=== PATIENT | male | born 1980 | race Caucasian/White ===

== ENCOUNTER 2019-04-30 11:12 | Emergency (ER) | payer SELFPAY ==
[~2019-04-30] VITALS: Ht 193 cm; Wt 149.7 kg
--- NOTE | 2019-04-30 11:38 | PHYS DOC ---
Adult General Chief Complaint Chief Complaint: lower extremity bleeding HPI HPI Patient is a 39-year-old male who presents with complaint of bleeding from his left lower leg. Patient states that he had gone down to scratch his leg and then suddenly it just started to bleed heavily. Patient denies any trauma to the leg. He denies any pain to the leg. He states that it is just bleeding. He does admit to history of varicose veins. He denies any chest pain or shortness breath. He denies any dizziness, nausea or vomiting.[] Review of Systems Review of Systems Constitutional: Denies fever or chills [] Respiratory: Denies cough or shortness of breath [] Cardiovascular: No additional information not addressed in HPI [] Integument: Denies rash or skin lesions. Positive small punctate wound to lateral aspect of left lower leg with small amount of active bleeding. [] Neurologic: Denies headache, focal weakness or sensory changes [] All other systems were reviewed and found to be within normal limits, except as documented in this note. Physical Exam Physical Exam Constitutional: Well developed, well nourished, no acute distress, non-toxic appearance. [] HENT: Normocephalic, atraumatic, bilateral external ears normal, oropharynx m oist, no oral exudates, nose normal. [] Eyes: PERRLA, EOMI, conjunctiva normal, no discharge. [] Neck: Normal range of motion, no tenderness, supple, no stridor. [] Cardiovascular: Regular rate and rhythm[] Lungs & Thorax: Bilateral breath sounds clear to auscultation [] Abdomen: Bowel sounds normal, soft. [] Skin: There is small punctate lesion in the lateral aspect of the left lower leg with this small amount of active bleeding noted, overlying varicosity. [] Extremities: No tenderness, no cyanosis, no clubbing, ROM intact. [] Neurologic: Alert and oriented X 3, no focal deficits noted. [] EKG EKG [] Radiology/Procedures Radiology/Procedures [] Course & Med Decision Making Course & Med Decision Making Pertinent Labs and Imaging studies reviewed. (See chart for details) [] Dragon Disclaimer Dragon Disclaimer This electronic medical record was generated, in whole or in part, using a voice recognition dictation system. Departure Departure: Impression: Primary Impression: Bleeding from varicose vein Disposition: 01 HOME, SELF-CARE Condition: STABLE Referrals: PCPREYNALDO (PCP) Patient Instructions: Bleeding Varicose Veins PAUL MARTELL Jr. DO Apr 30, 2019 11:38
[2019-04-30 11:56] LABS: BASO # 0.1 x10^3/uL (0.0-0.2); BASO % 1 % (0-3); EOS # 0.4 x10^3/uL (0.0-0.7); EOS % 4 % (0-3); HEMATOCRIT 46.5 % (39.0-53.0); HEMOGLOBIN 16.2 g/dL (13.0-17.5); LYMPH # 4.5 x10^3/uL (1.0-4.8); LYMPH % 46 % (24-48); MEAN CORPUSCULAR HEMOGLOBIN 29 pg (25-35); MEAN CORPUSCULAR HGB CONC 35 g/dL (31-37); MEAN CORPUSCULAR VOLUME 84 fL (79-100); MONO # 0.7 x10^3/uL (0.0-1.1); MONO % 7 % (0-9); NEUT % 42 % (31-73); PLATELET COUNT 264 x10^3/uL (140-400); RED BLOOD COUNT 5.52 x10^6/uL (4.30-5.70); WHITE BLOOD COUNT 9.6 x10^3/uL (4.0-11.0)
[2019-04-30 12:00] LABS: CREATININE 1.1 mg/dL (0.7-1.3); GFR 75.3; POTASSIUM 3.8 mmol/L (3.5-5.1)
[2019-04-30 12:06] LABS: ALBUMIN/GLOBULIN RATIO 1.1 (1.0-1.7); TOTAL BILIRUBIN 0.7 mg/dL (0.2-1.0); TOTAL PROTEIN 7.7 g/dL (6.4-8.2)
[2019-04-30 12:15] VITALS: BP 122/82
== END 2019-04-30 13:00 | disposition home or self-care (01) ==
LOC: ER 11:12
DX: S81.832A Puncture wound without foreign body, left lower leg, initial encounter (principal); I83.892 Varicose veins of left lower extremity with other complications; X58.XXXA Exposure to other specified factors, initial encounter; Y93.89 Activity, other specified; Y92.89 Other specified places as the place of occurrence of the external cause; Y99.8 Other external cause status
CPT/HCPCS: 36415; 80053; 85025; 99284